=== PATIENT | male | born 1940 | race African-American/Black ===

== ENCOUNTER 2017-11-24 20:23 | Emergency (ER) | payer MEDICARE ==
[~2017-11-24] VITALS: Ht 185.4 cm; Wt 108.9 kg
[~2017-11-24 20:23] MED LIST: AGGRENOX; ASPI-1154 PO; ATEN-167 PO; COLC0.6T51 PO; GLIP-204 PO; INSU100V7 IJ; LISI40TA4 PO; NPH,100V11 SQ; PARO40TA PO; SIMV80TA2 PO; VARD20TA31 PO; VARE0.5T PO; [UNRECOGNIZED DRUG - CODE] PO
[2017-11-24 20:27] VITALS: BP_SYST 98
[2017-11-24 22:03] VITALS: BP_SYST 108
== END 2017-11-24 22:03 | disposition home or self-care (01) ==
LOC: SED 20:23
DX: T82.838A Hemorrhage due to vascular prosthetic devices, implants and grafts, initial encounter (principal); E11.9 Type 2 diabetes mellitus without complications; I10 Essential (primary) hypertension; Z86.73 Personal history of transient ischemic attack (TIA), and cerebral infarction without residual deficits; Z79.4 Long term (current) use of insulin; Z79.899 Other long term (current) drug therapy; Z99.2 Dependence on renal dialysis
CPT/HCPCS: 99283